=== PATIENT | male | born 1965 | race Caucasian/White ===

== ENCOUNTER 2021-03-02 20:54 | Emergency (ER) | payer OTHER ==
[~2021-03-02] VITALS: Ht 175.3 cm; Wt 81.7 kg
[~2021-03-02 20:54] MED LIST: AMOXICILLIN 50500 MG PO; KEFLEX250 MG PO; NAPROSYN500 MG PO; NEXIUM; NORCO 5-325 TA1 EACH PO; PERCOCET 5-3251 EACH PO; [UNRECOGNIZED DRUG - REMARK]
[2021-03-02] MEDS ORDERED: DOXYCYCLINE 10100 MG PO (23:18)
[2021-03-02] MEDS ORDERED: CENTANY30 GM TOP (23:18)
[2021-03-02 23:25] VITALS: BP 138/84
== END 2021-03-02 23:25 | disposition home or self-care (01) ==
LOC: M.ERS 20:54
DX: L03.114 Cellulitis of left upper limb (principal); L03.113 Cellulitis of right upper limb; K21.9 Gastro-esophageal reflux disease without esophagitis; Z90.89 Acquired absence of other organs; Z88.5 Allergy status to narcotic agent